=== PATIENT | male | born 1975 | race Caucasian/White ===

== ENCOUNTER → 2016-07-11 | Outpatient (CLI) | payer OTHER ==
--- NOTE | 2016-07-11 13:36 | DIAGNOSTIC IMAGING REPORT ---
CHEST 2 VIEWS ROUTINE CLINICAL HISTORY: COUGH COMPARISON STUDY: No previous studies for comparison. FINDINGS: The cardiac and mediastinal contours are normal. There is no evidence of focal pulmonary consolidation. There is no evidence of failure. No pleural effusions are visualized.[ There is a 5 mm density projected over the lower left heart border. This likely represents a summation. IMPRESSION: No active disease in the chest. Electronically signed by: Camden Copeland M.D. 07/11/2016 1:35 PM Dictated Date/Time: 07/11/2016 1:34 PM
== END | disposition home or self-care (01) ==
LOC: C.RAD 12:49
PROVIDERS: ATTEND Physician Assistant
DX: R05 Cough (principal)

== ENCOUNTER → 2016-10-09 | Outpatient (CLI) | payer OTHER ==
--- NOTE | 2016-10-14 09:38 | PULMONARY FUNCTION TEST ---
Spirometry shows a mild decrease in forced vital capacity, but with a normal FEV1 and FEV1/FVC ratio. This likely represents normal spirometry. Flow volume loop might suggest the patient did not exhale to completion. Repeat study done following bronchodilator showed mild but not significant improvement in function. The post-bronchodilator spirometry was within the limits of normal. Lung volumes showed a decrease in total lung capacity, which was mild and a moderate decrease in residual volume. FRC was decreased as well. This would be compatible with restriction. Advise clinical correlation. These findings are more abnormal than anticipated from spirometry. Typically spirometry is a more reliable indicator of function. Diffusion is normal.
== END | disposition home or self-care (01) ==
LOC: C.RC 09:32
PROVIDERS: ATTEND Physician Assistant
DX: R05 Cough (principal)

== ENCOUNTER → 2016-10-10 | Outpatient (CLI) | payer OTHER ==
--- NOTE | 2016-10-10 19:20 | DOBUTAMINE ECHO ---
*NOTICE TO RECEIVING REPUBLICAN AGENCY This information is strictly Confidential and protected under [place] law. [place] law prohibits you from making any further disclosure of this information unless further disclosure is expressly permitted by the written consent of the person to whom it pertains or is authorized by law. A general authorization for the release of medical or other information is not sufficient for this purpose. Hospital accepts no responsibility if the information is made available to any other person, INCLUDING THE PATIENT. Interpretation Summary * Name: ANJELICA MAYERS Study Date: 10/10/2016 09:31 AM BP: 118/81 mmHg * HR: 60 * : 1975 (M/d/yyyy) Gender: Male Height: 73 in * Age: 41 yrs Ethnicity: [place] Weight: 250 lb * Ordering Physician: SCOTTIE DA SILVA * Referring Physician: SCOTTIE DA SILVA * Performed By: Jason Herrera RCS * * Reason For Study: Chest pain * BSA: 2.4 m2 * The ST segment changes following exercise are borderline diagnostic of myocardial ischemia. The specificity of these changes are diminished by the normal echo cardiographic response to exercise. The changes would be consistent with a false positive finding. The echo response to exercise was normal. * The exercise echocardiographic examination is normal without resting left ventricular wall motion abnormalities or inducible ischemia. * The left ventricular ejection fraction increases normally with stress. The left ventricular end-systolic cavity size reduces post-stress (normal response). The left ventricular wall motion with stress is normal. * This was a normal stress echocardiogram. * Exercise capacity is above average. * RESTING STUDY: Normal left ventricular cavity size, myocardial thickness, wall motion, and systolic function. Procedure Details * A contrast injection of Definity was performed to improve assessment of LV function. * Contrast was injected into an intravenous site in the right arm. * One vial of Definity ultrasound contrast was diluted in normal saline to a total volume of 10 ml. A total of '5' ml of solution was administered during imaging. * Lot # [id number] of Definity utilized for procedure. * Expiration date . * The attending nurse who injected the contrast agent was CATH, RN. Left Ventricle * The left ventricle is normal in size. * There is normal left ventricular wall thickness. * Ejection Fraction = 65-70%. * Left ventricular systolic function is normal. * The left ventricular ejection fraction increases normally with stress. The left ventricular end-systolic cavity size reduces post-stress (normal response). The left ventricular wall motion with stress is normal. * Resting wall motion: Normal. Stress wall motion: Appropriate increase in Left ventricular systolic function and decrease in cavity size. No stress induced segmental wall motion abnormalities. Right Ventricle * The right ventricle is normal in size and function. Atria * The left atrial size is normal. * Right atrium not well visualized. Mitral Valve * The mitral valve is normal. * There is no mitral valve stenosis. * There is no mitral regurgitation noted. Tricuspid Valve * The tricuspid valve is not well visualized. * There is no tricuspid stenosis. * There is trace tricuspid regurgitation. Aortic Valve * The aortic valve was not visualized well. However, it did appear to be trileaflet and to open normally. * Aortic stenosis is absent. * No aortic regurgitation is present. Pulmonic Valve * The pulmonic valve is not well visualized. * The pulmonary valve is inadequately visualized, but the Doppler data is adequate for interpretation. * Pulmonic stenosis is absent. * There is no pulmonic valvular regurgitation. Great Vessels * The aortic root is normal size. Pericardium * There is no pericardial effusion. Stress Parameters * Normal baseline electrocardiogram. * 1 mm horizontal to slowly upsloping ST depressions in leads 2, 3, and AVF. The ST segments returned to baseline within 2 minutes of recovery. * Rest heart rate was '63' BPM. * Rest blood pressure was '118/81' * Maximum heart rate achieved was 173 bpm. * Maximum heart rate was 97 % of maximum age-predicted heart rate. * Maximum blood pressure was '188/72' * Total exercise time was '12' * Maximum exercise MET level achieved was '13.7' METS * Maximum treadmill speed was '4.3' miles per hour. * Maximum treadmill elevation was '16'% grade. * Exercise was terminated due to 'Fatigue' * No complaint of chest pain. MMode 2D Measurements and Calculations IVSd 0.92 cm LVIDd 5.1 cm LVIDs 2.9 cm LVPWd 1.0 cm IVS/LVPW 0.89 FS 43.4 % EDV(Teich) 126.6 ml ESV(Teich) 32.6 ml EF(Teich) 74.3 % EDV(cubed) 136.5 ml ESV(cubed) 24.7 ml EF(cubed) 81.9 % LV mass(C)d 186.4 grams LV mass(C)dI 78.8 grams/m\S\2 SV(Teich) 94.0 ml SI(Teich) 39.7 ml/m\S\2 SV(cubed) 111.8 ml SI(cubed) 47.2 ml/m\S\2 Ao root diam 2.8 cm Ao root area 6.3 cm\S\2 LVOT diam 2.1 cm LVOT area 3.3 cm\S\2 LVAd ap4 34.0 cm\S\2 LVLd ap4 8.2 cm EDV(MOD-sp4) 116.0 ml LVAs ap4 16.6 cm\S\2 LVLs ap4 6.6 cm ESV(MOD-sp4) 35.7 ml EF(MOD-sp4) 69.2 % LVAd ap2 30.4 cm\S\2 LVLd ap2 7.8 cm EDV(MOD-sp2) 99.4 ml LVAs ap2 12.0 cm\S\2 LVLs ap2 6.1 cm ESV(MOD-sp2) 21.5 ml EF(MOD-sp2) 78.4 % SV(MOD-sp4) 80.3 ml SI(MOD-sp4) 33.9 ml/m\S\2 SV(MOD-sp2) 77.9 ml SI(MOD-sp2) 32.9 ml/m\S\2 Doppler Measurements and Calculations MV E max eliceo 82.9 cm/sec MV A max eliceo 34.0 cm/sec MV E/A 2.4 MV dec time 0.24 sec Ao V2 max 125.5 cm/sec Ao max PG 6.3 mmHg Ao max PG (full) 1.5 mmHg VEENA(V,A) 2.9 cm\S\2 VEENA(V,D) 2.9 cm\S\2 LV V1 max PG 4.8 mmHg LV V1 max 109.1 cm/sec TR max eliceo 275.1 cm/sec
--- NOTE | 2016-10-10 19:25 | DOBUTAMINE ECHO ---
*NOTICE TO RECEIVING CONSTITUTION PARTY AGENCY This information is strictly Confidential and protected under [place] law. [place] law prohibits you from making any further disclosure of this information unless further disclosure is expressly permitted by the written consent of the person to whom it pertains or is authorized by law. A general authorization for the release of medical or other information is not sufficient for this purpose. Hospital accepts no responsibility if the information is made available to any other person, INCLUDING THE PATIENT. Interpretation Summary * Name: ANJELICA MAYERS Study Date: 10/10/2016 09:31 AM BP: 118/81 mmHg * HR: 60 * : 1975 (M/d/yyyy) Gender: Male Height: 73 in * Age: 41 yrs Ethnicity: [place] Weight: 250 lb * Ordering Physician: SCOTTIE DA SILVA * Referring Physician: SCOTTIE DA SILVA * Performed By: Jason Herrera RCS * * Reason For Study: Chest pain * BSA: 2.4 m2 * The ST segment changes following exercise are borderline diagnostic of myocardial ischemia. The specificity of these changes are diminished by the normal echo cardiographic response to exercise. The changes would be consistent with a false positive finding. The echo response to exercise was normal. * Mildly elevated estimated right ventricular systolic pressure. * The exercise echocardiographic examination is normal without resting left ventricular wall motion abnormalities or inducible ischemia. * The left ventricular ejection fraction increases normally with stress. The left ventricular end-systolic cavity size reduces post-stress (normal response). The left ventricular wall motion with stress is normal. * This was a normal stress echocardiogram. * Exercise capacity is above average. * RESTING STUDY: Normal left ventricular cavity size, myocardial thickness, wall motion, and systolic function. Procedure Details * A contrast injection of Definity was performed to improve assessment of LV function. * Contrast was injected into an intravenous site in the right arm. * One vial of Definity ultrasound contrast was diluted in normal saline to a total volume of 10 ml. A total of '5' ml of solution was administered during imaging. * Lot # [id number] of Definity utilized for procedure. * Expiration date . * The attending nurse who injected the contrast agent was JANEE RN. Left Ventricle * The left ventricle is normal in size. * There is normal left ventricular wall thickness. * Ejection Fraction = 65-70%. * Left ventricular systolic function is normal. * The left ventricular ejection fraction increases normally with stress. The left ventricular end-systolic cavity size reduces post-stress (normal response). The left ventricular wall motion with stress is normal. * Resting wall motion: Normal. Stress wall motion: Appropriate increase in Left ventricular systolic function and decrease in cavity size. No stress induced segmental wall motion abnormalities. Right Ventricle * The right ventricle is normal in size and function. Atria * The left atrial size is normal. * Right atrium not well visualized. Mitral Valve * The mitral valve is normal. * There is no mitral valve stenosis. * There is no mitral regurgitation noted. Tricuspid Valve * The tricuspid valve is not well visualized. * There is no tricuspid stenosis. * There is trace tricuspid regurgitation. * Right ventricular systolic pressure is elevated at 30-40mmHg. Aortic Valve * The aortic valve was not visualized well. However, it did appear to be trileaflet and to open normally. * Aortic stenosis is absent. * No aortic regurgitation is present. Pulmonic Valve * The pulmonic valve is not well visualized. * The pulmonary valve is inadequately visualized, but the Doppler data is adequate for interpretation. * Pulmonic stenosis is absent. * There is no pulmonic valvular regurgitation. Great Vessels * The aortic root is normal size. Pericardium * There is no pericardial effusion. Stress Parameters * Normal baseline electrocardiogram. * 1 mm horizontal to slowly upsloping ST depressions in leads 2, 3, and AVF. The ST segments returned to baseline within 2 minutes of recovery. * Rest heart rate was '63' BPM. * Rest blood pressure was '118/81' * Maximum heart rate achieved was 173 bpm. * Maximum heart rate was 97 % of maximum age-predicted heart rate. * Maximum blood pressure was '188/72' * Total exercise time was '12' * Maximum exercise MET level achieved was '13.7' METS * Maximum treadmill speed was '4.3' miles per hour. * Maximum treadmill elevation was '16'% grade. * Exercise was terminated due to 'Fatigue' * No complaint of chest pain. MMode 2D Measurements and Calculations IVSd 0.92 cm LVIDd 5.1 cm LVIDs 2.9 cm LVPWd 1.0 cm IVS/LVPW 0.89 FS 43.4 % EDV(Teich) 126.6 ml ESV(Teich) 32.6 ml EF(Teich) 74.3 % EDV(cubed) 136.5 ml ESV(cubed) 24.7 ml EF(cubed) 81.9 % LV mass(C)d 186.4 grams LV mass(C)dI 78.8 grams/m\S\2 SV(Teich) 94.0 ml SI(Teich) 39.7 ml/m\S\2 SV(cubed) 111.8 ml SI(cubed) 47.2 ml/m\S\2 Ao root diam 2.8 cm Ao root area 6.3 cm\S\2 LVOT diam 2.1 cm LVOT area 3.3 cm\S\2 LVAd ap4 34.0 cm\S\2 LVLd ap4 8.2 cm EDV(MOD-sp4) 116.0 ml LVAs ap4 16.6 cm\S\2 LVLs ap4 6.6 cm ESV(MOD-sp4) 35.7 ml EF(MOD-sp4) 69.2 % LVAd ap2 30.4 cm\S\2 LVLd ap2 7.8 cm EDV(MOD-sp2) 99.4 ml LVAs ap2 12.0 cm\S\2 LVLs ap2 6.1 cm ESV(MOD-sp2) 21.5 ml EF(MOD-sp2) 78.4 % SV(MOD-sp4) 80.3 ml SI(MOD-sp4) 33.9 ml/m\S\2 SV(MOD-sp2) 77.9 ml SI(MOD-sp2) 32.9 ml/m\S\2 Doppler Measurements and Calculations MV E max eliceo 82.9 cm/sec MV A max eliceo 34.0 cm/sec MV E/A 2.4 MV dec time 0.24 sec Ao V2 max 125.5 cm/sec Ao max PG 6.3 mmHg Ao max PG (full) 1.5 mmHg VEENA(V,A) 2.9 cm\S\2 VEENA(V,D) 2.9 cm\S\2 LV V1 max PG 4.8 mmHg LV V1 max 109.1 cm/sec TR max eliceo 275.1 cm/sec
== END | disposition home or self-care (01) ==
LOC: C.CPL 09:16
PROVIDERS: ATTEND Physician Assistant
DX: R07.89 Other chest pain (principal); R05 Cough